=== PATIENT | female | born 1965 ===

== ENCOUNTER 2021-07-12 05:55 | Day surgery (SDC) | payer OTHER ==
[2021-07-12] MEDS ORDERED: COLACE100 MG PO (12:01)
[2021-07-12] MEDS ORDERED: ULTRACET PO (12:01)
== END 2021-07-12 17:00 | disposition home or self-care (01) ==
LOC: CIR.AMB 05:55 → EDBD 11:15 → CIR.AMB 17:00
PROVIDERS: ATTEND Surgery
DX: D12.8 Benign neoplasm of rectum (principal)

== ENCOUNTER 2021-07-21 14:31 | Emergency (ER) | payer OTHER ==
[~2021-07-21] VITALS: Ht 162.6 cm; Wt 70.3 kg
[~2021-07-21 14:31] MED LIST: COLACE100 MG PO; ULTRACET PO
== END 2021-07-21 20:34 | disposition home or self-care (01) ==
LOC: ER 14:31
DX: K59.00 Constipation, unspecified (principal); R10.84 Generalized abdominal pain

== ENCOUNTER 2021-07-22 18:40 | Emergency (ER) | payer OTHER ==
[~2021-07-22] VITALS: Ht 152.4 cm; Wt 52.2 kg
== END 2021-07-24 09:31 | disposition home or self-care (01) ==
LOC: ER 18:40
DX: K62.5 Hemorrhage of anus and rectum (principal)